=== PATIENT | female | born 1980 | race Caucasian/White ===

== ENCOUNTER 2020-08-01 07:55 | Emergency (ER) | payer OTHER ==
[~2020-08-01] VITALS: Ht 175.3 cm; Wt 61.4 kg
[2020-08-01 08:10] VITALS: Ht 175.3 cm; Wt 61.4 kg
[2020-08-01 10:48] VITALS: BP 118/81
== END 2020-08-01 10:32 | disposition home or self-care (01) ==
LOC: D.ER 07:55
DX: S92.001A Unspecified fracture of right calcaneus, initial encounter for closed fracture (principal); V89.2XXA Person injured in unspecified motor-vehicle accident, traffic, initial encounter; Y93.9 Activity, unspecified; Y92.9 Unspecified place or not applicable